=== PATIENT | female | born 1965 | race Caucasian/White ===

== ENCOUNTER 2017-09-10 08:27 | Emergency (ER) | payer BC ==
[2017-09-10 09:56] LABS: Urine Appearance Clear; Urine Blood Negative (Negative); Urine Color Colorless; Urine Ketones Negative (Negative); Urine Protein Negative (Negative); Urine Specific Gravity 1.002 (1.010-1.030); Urine Urobilinogen Negative (Negative)
--- NOTE | 2017-09-10 09:59 | RAD ---
INDICATION: Chest pain. COMPARISON: Comparison is made with a prior study from January 10, 2016. TECHNIQUE: A portable view of the chest was obtained. FINDINGS: Cardiac and mediastinal contours appear to be within normal limits. The lungs are hyperinflated and clear. No pleural effusion is seen. IMPRESSION: NO EVIDENCE FOR ACUTE FINDING.
[2017-09-10 10:14] LABS: Hematocrit 45 % (35-47); Hemoglobin 14.9 g/dl (12.0-16.0); Mean Corpuscular HGB Conc 33 g/dl (31-36); Mean Corpuscular Hemoglobin 33 pg (27-31); Mean Corpuscular Volume 98 fL (80-97); Red Blood Count 4.58 10^6/ul (4.0-5.4); Red Cell Distribution Width 14 % (10.5-15); White Blood Count 6.9 10^3/ul (3.5-10.8)
[2017-09-10 10:38] LABS: ABS Basophils 0.1 10^3/ul (0-0.2); ABS Eosinophils 0 10^3/ul (0-0.6); ABS Lymphocytes 1.2 10^3/ul (1.0-4.8); ABS Monocytes 0.5 10^3/ul (0-0.8); ABS Neutrophils 5.1 10^3/ul (1.5-7.7); ABS Nucleated RBC 0 10^3/ul; Eosinophil % 0.7 % (0-6); Lymphocyte % 17.5 % (25-47); Mean Platelet Volume 10 um3 (7.4-10.4); Nucleated Red Blood Cells % 0.2; Platelet Count 199 10^3/ul (150-450)
[2017-09-10] MEDS ORDERED: Ketorolac INJ* 30 MG/ML 1 ML VIAL IV PUSH ONE (12:59)
--- NOTE | 2017-09-10 13:17 | RAD ---
HISTORY: Back pain COMPARISONS: None VIEWS: 3 , Frontal, lateral, and coned-down lateral sacral views of the lumbar spine FINDINGS: ALIGNMENT: The alignment is normal. VERTEBRAL BODIES: The vertebral body heights are normal. The interpedicular distances are normal. There is mild anterolateral marginal osteophyte formation at L2-L3 and L3-L4. JOINTS: There is mild facet hypertrophic change at L4-L5 and L5-S1. INTERVERTEBRAL DISCS: There is mild diffuse loss of intervertebral disc height. SOFT TISSUE: Unremarkable. OTHER: The pelvis is unremarkable. The lung bases are clear. IMPRESSION: MILD DEGENERATIVE DISC DISEASE AND OSTEOARTHRITIS.
[2017-09-10 13:54] VITALS: BP 114/86
--- NOTE | 2017-09-10 14:01 | ED ---
Tommy Juan Thomas, scribed for Pernell Painter MD on 09/10/17 at 0855 . Complex/Multi-Sys Presentation - HPI Summary HPI Summary: The patient is a 52 year old female complaining episodes of chest tightness and shortness of breath that last 45 minutes in duration and have been present for the last two weeks. The patient also complains of generalized malaise, dizziness , chills, and lower back pain. She has been having watery diarrhea since last night. She denies recent travel, consumption of suspect food, and recent antibiotics use. The patient denies abdominal pain, nausea, and vomiting. - History Of Current Complaint Chief Complaint: EDDizziness Time Seen by Provider: 09/10/17 08:36 Hx Obtained From: Patient Onset/Duration: Lasting Weeks - 2, Still Present Timing: Minutes - 45 minutes Alleviating Factor(s): None Associated Signs And Symptoms: Positive: Other - chest tightness, SOB, malaise, dizziness, chills, lower back pain, diarrhea; NEGATIVE: abd pain, nausea, vomiting - Allergies/Home Medications Allergies/Adverse Reactions: Allergies Allergy/AdvReac Type Severity Reaction Status Date / Time No Known Allergies Allergy Verified 01/10/16 08:43 PMH/Surg Hx/FS Hx/Imm Hx Endocrine/Hematology History: Denies: Hx Diabetes, Hx Thyroid Disease Cardiovascular History: Denies: Hx Congestive Heart Failure, Hx Hypertension Respiratory History: Denies: Hx Asthma, Hx Chronic Obstructive Pulmonary Disease (COPD) GI History: Reports: Hx Irritable Bowel Denies: Hx Ulcer History: Denies: Hx Dialysis, Hx Renal Disease Musculoskeletal History: Reports: Hx Rheumatoid Arthritis - BILATERAL HANDS Sensory History: Denies: Hx Hearing Aid Psychiatric History: Denies: Hx Panic Disorder - Surgical History Surgery Procedure, Year, and Place: varicose vein stripping - Immunization History Date of Tetanus Vaccine: 2012 Date of Influenza Vaccine: 04/2015 Infectious Disease History: No Infectious Disease History: Denies: Hx Clostridium Difficile, Hx Hepatitis, Hx Human Immunodeficiency Virus (HIV), Hx of Known/Suspected MRSA, Hx Shingles, Hx Tuberculosis, Hx Known/ Suspected VRE, Hx Known/Suspected VRSA, History Other Infectious Disease, Traveled Outside the [place] in Last 30 Days - Family History Known Family History: Positive: Hypertension - Social History Alcohol Use: Weekly Alcohol Amount: about 6 drinks on the weekend Substance Use Type: Reports: None Smoking Status (MU): Former Smoker Type: Cigarettes Have You Smoked in the Last Year: Yes Review of Systems Positive: Chills, Other - malaise. Negative: Fever Positive: Other - Chest tightness Positive: Shortness Of Breath Positive: Diarrhea. Negative: Abdominal Pain, Vomiting, Nausea Positive: Other - Lower back pain Neurological: Other - Dizziness All Other Systems Reviewed And Are Negative: Yes Physical Exam - Summary Physical Exam Summary: VITAL SIGNS: Reviewed. GENERAL: Patient is a well-developed and nourished female who is lying comfortable in the stretcher. Patient is not in any acute respiratory distress. HEAD AND FACE: No signs of trauma. No ecchymosis, hematomas or skull depressions. No sinus tenderness. EYES: PERRLA, EOMI x 2, No injected conjunctiva, no nystagmus. EARS: Hearing grossly intact. Ear canals and tympanic membranes are within normal limits. MOUTH: Oropharynx within normal limits. NECK: Supple, trachea is midline, no adenopathy, no JVD, no carotid bruit, no c- spine tenderness, neck with full ROM. CHEST: Symmetric, no tenderness at palpation LUNGS: Clear to auscultation bilaterally. No wheezing or crackles. CVS: Regular rate and rhythm, S1 and S2 present, no murmurs or gallops appreciated. ABDOMEN: Soft, non-tender. No signs of distention. No rebound no guarding, and no masses palpated. Bowel sounds are normal. EXTREMITIES: FROM in all major joints, no edema, no cyanosis or clubbing. NEURO: Alert and oriented x 3. No acute neurological deficits. Speech is normal and follows commands. SKIN: Dry and warm Triage Information Reviewed: Yes Vital Signs On Initial Exam: Initial Vitals Temp Pulse Resp BP Pulse Ox 98.8 F 96 18 122/81 99 09/10/17 08:29 09/10/17 08:29 09/10/17 08:29 09/10/17 08:29 09/10/17 08:29 Vital Signs Reviewed: Yes Diagnostics - Vital Signs Vital Signs Temp Pulse Resp BP Pulse Ox 09/10/17 08:43 90 98 09/10/17 08:29 98.8 F 96 18 122/81 99 - Laboratory Lab Results: Lab Results 09/10/17 09/10/17 09/10/17 Range/Units 09:11 09:47 09:47 WBC 6.9 (3.5-10.8) 10^3/ul RBC 4.58 (4.0-5.4) 10^6/ul Hgb 14.9 (12.0-16.0) g/dl Hct 45 (35-47) % MCV 98 H (80-97) fL MCH 33 H (27-31) pg MCHC 33 (31-36) g/dl RDW 14 (10.5-15) % Plt Count 199 (150-450) 10^3/ul MPV 10 (7.4-10.4) um3 Neut % (Auto) 73.8 (38-83) % Lymph % (Auto) 17.5 L (25-47) % [place] % (Auto) 6.6 (0-7) % Eos % (Auto) 0.7 (0-6) % Baso % (Auto) 1.4 (0-2) % Absolute Neuts (auto) 5.1 (1.5-7.7) 10^3/ul Absolute Lymphs (auto) 1.2 (1.0-4.8) 10^3/ul Absolute Monos (auto) 0.5 (0-0.8) 10^3/ul Absolute Eos (auto) 0 (0-0.6) 10^3/ul Absolute Basos (auto) 0.1 (0-0.2) 10^3/ul Absolute Nucleated RBC 0 10^3/ul Nucleated RBC % 0.2 Sodium 139 (133-145) mmol/L Potassium 4.0 (3.5-5.0) mmol/L Chloride 106 (101-111) mmol/L Carbon Dioxide 24 (22-32) mmol/L Anion Gap 9 (2-11) mmol/L BUN 10 (6-24) mg/dL Creatinine 0.78 (0.51-0.95) mg/dL Est GFR ( Amer) 99.0 (>60) Est GFR (Non-Af Amer) 77.0 (>60) BUN/Creatinine Ratio 12.8 (8-20) Glucose 94 (70-100) mg/dL Calcium 9.9 (8.6-10.3) mg/dL Total Bilirubin 0.40 (0.2-1.0) mg/dL AST 22 (13-39) U/L ALT 14 (7-52) U/L Alkaline Phosphatase 61 (34-104) U/L Troponin I 0.01 (<0.04) ng/mL C-Reactive Protein < 1.00 (< 5.00) mg/L Total Protein 7.6 (6.4-8.9) g/dL Albumin 4.4 (3.2-5.2) g/dL Globulin 3.2 (2-4) g/dL Albumin/Globulin Ratio 1.4 (1-3) Lipase 52 (11.0-82.0) U/L Urine Color Colorless Urine Appearance Clear Urine pH 7.0 (5-9) Ur Specific [place] 1.002 L (1.010-1.030) Urine Protein Negative (Negative) Urine Ketones Negative (Negative) Urine Blood Negative (Negative) Urine Nitrate Negative (Negative) Urine Bilirubin Negative (Negative) Urine Urobilinogen Negative (Negative) Ur Leukocyte Esterase Negative (Negative) Urine Glucose Negative (Negative) Result Diagrams: 09/10/17 09:47 09/10/17 09:47 Lab Statement: Any lab studies that have been ordered have been reviewed, and results considered in the medical decision making process. - Radiology CXR Xray Interpretation: No Acute Changes - NO EVIDENCE FOR ACUTE FINDING. Dr. Painter has reviewed this report. Radiology Interpretation Completed By: Radiologist XR L-Spine Xray Interpretation: No Acute Changes - MILD DEGENERATIVE DISC DISEASE AND OSTEOARTHRITIS. Dr. Painter has reviewed this report. Radiology Interpretation Completed By: Radiologist - EKG 09:58 Cardiac Rate: NL EKG Rhythm: Sinus Rhythm - at 79 BPM EKG Interpretation: No ST elevations. Normal axis. Complex Multi-Symp Course/Dx Assessment/Plan: The patient is a 52 year old female complaining episodes of chest tightness and shortness of breath that last 45 minutes in duration and have been present for the last two weeks. The patient also complains of generalized malaise, dizziness, chills, and lower back pain. She has been having watery diarrhea since last night. She denies recent travel, consumption of suspect food, and recent antibiotics use. The patient denies abdominal pain, nausea, and vomiting. Test results are without significant abnormalities. Urinalysis is negative for UTI. The patient has not been able to give a stool sample since the diarrhea is resolved. CXR shows no evidence for acute finding. The patient was complaining of lower back pain, therefore, we did an XR of the L -Spine that showed mild DDD and osteoarthritis. Therefore, since all tests are negative, the patient will be discharged home to follow up with primary care. The patient is hemodynamically stable and alert and oriented x3. - Diagnoses Differential Diagnoses/HQI/PQRI: Other - Chest pain, diarrhea, weakness Provider Diagnoses: Back pain, Atypical chest pain Discharge - Discharge Plan Condition: Stable Disposition: HOME Patient Education Materials: Chest Pain (ED), Back Pain (ED) Referrals: Nicky Hollis MD [Primary Care Provider] - 3 Days Additional Instructions: Follow up with your primary care physician in three days. Return to the emergency department for any new or worsening symptoms. The documentation as recorded by the Tommy olmstead Thomas accurately reflects the service I personally performed and the decisions made by , Pernell Painter MD.
== END 2017-09-10 13:53 | disposition home or self-care (01) ==
LOC: ED 08:27
DX: M54.5 Low back pain (principal); R07.89 Other chest pain; R06.02 Shortness of breath; R53.81 Other malaise; R42 Dizziness and giddiness; R19.7 Diarrhea, unspecified; Z87.891 Personal history of nicotine dependence
CPT/HCPCS: 36415; 71045; 72100; 80053; 81003; 83690; 84484; 85025; 86140; 87040; 93005; 96374; 99283; J1885